=== PATIENT | male | born 1985 | race American Indian/Alaskan Native ===

== ENCOUNTER 2018-01-24 17:10 | Emergency (ER) | payer OTHER ==
[2018-01-24 17:24] VITALS: BP 191/112
--- NOTE | 2018-01-24 17:27 | EDM.PDOC ---
ED HPI GENERAL MEDICAL PROBLEM - General Chief Complaint: Cardiovascular Problem Stated Complaint: RACING HEART BEAT/TROUBLE WITH EYES Time Seen by Provider: 01/24/18 17:26 Source of Information: Reports: Patient History Limitations: Reports: No Limitations - History of Present Illness INITIAL COMMENTS - FREE TEXT/NARRATIVE: 32-year-old male of [place] descent presents to the ED due to feeling of palpitations racing heart and his heart working hard in his chest on at least 2 occasions today. He states he awoke abruptly from sleep this morning due to feeling of racing heart and trouble getting his breath. He states he jumped up out of bed as he was quite scared. He then became quite dizzy and lightheaded and had to sit down on the bed for a period of time until things improve. After while he was able to go back to sleep and he states about an hour later a similar event occurred. He states in the past he's had a bout of racing heart at age 24. Patient claims to have had hypertension for many years i.e. 7 or 8 but is not taking medication for this. He is morbidly obese current weight is 480 pounds. He has a history of gastroesophageal reflux for which he uses Jordyn- [place] tablets on a when necessary basis. He has awoken at night in the past with brash water in his mouth or throat. He drinks alcohol fairly regularly. States last drinking 3 days ago fairly heavily. He states he smokes cigarettes usually 5-10 per day. Onset Date: 01/24/18 Onset Time: 07:00 Duration: Hour(s): Location: Reports: Other (Awoken from sleep with sudden onset of severe dyspnea) Quality: Reports: Other Severity: Moderate (Shortness of breath.) Improves with: Reports: None Worsens with: Reports: None Context: Reports: Other (Awoke with from sleep with symptoms.). Denies: Activity, Exercise, Lifting, Sick Contact, Trauma Associated Symptoms: Reports: Chest Pain, Loss of Appetite, Malaise, Shortness of Breath. 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 1 tab PO DAILY 01/24/18 [History] amLODIPine Besylate [Norvasc] 10 mg PO DAILY #30 tablet 01/24/18 [Rx] Past Medical History Cardiovascular History: Reports: High Cholesterol, Hypertension Gastrointestinal History: Reports: GERD - Past Surgical History Musculoskeletal Surgical History: Reports: Other (See Below) Social & Family History - Family History Family Medical History: Noncontributory - Tobacco Use Smoking Status *Q: Current Every Day Smoker Years of Tobacco use: 10 Packs/Tins Daily: 0.1 Used Tobacco, but Quit: No Second Hand Smoke Exposure: No - Alcohol Use Alcohol Use History: Yes Days Per Week of Alcohol Use: 3 Number of Drinks Per Day: 2 Total Drinks Per Week: 6 - Recreational Drug Use Recreational Drug Use: Yes Drug Use in Last 12 Months: Yes Recreational Drug Type: Reports: Marijuana/Hashish - Living Situation & Occupation Living situation: Reports: Single, with Significant Other Occupation: Unemployed ED ROS GENERAL - Review of Systems Review Of Systems: See Below Constitutional: Reports: Weakness, Fatigue, Decreased Appetite, Other (Reports she's had 2 or 3 Gatorade since its Pedialyte today. Has not eaten yet today.). Denies: Fever, Chills, Malaise, Weight Loss HEENT: Reports: Vision Change ((Patient has fluctuating from time to time. Is not known to be diabetic but he rarely sees a physician.) Respiratory: Reports: Shortness of Breath, Cough. Denies: Wheezing, Pleuritic Chest Pain, Sputum, Hemoptysis Cardiovascular: Reports: Blood Pressure Problem, Dyspnea on Exertion (When he jumped up this morning he became quite lead lightheaded for a period of time), Lightheadedness, Palpitations ( likely). Denies: Chest Pain (Occasional cough) , Claudication (Has known hypertension for which she has declined to take medication for.), Edema, Orthopnea Endocrine: Reports: Fatigue ( see history of present illness) GI/Abdominal: Reports: Other (Gastroesophageal reflux disease.) : Reports: No Symptoms Musculoskeletal: Reports: Back Pain, Joint Pain (Knees at times) Skin: Reports: No Symptoms Neurological: Reports: No Symptoms Psychiatric: Reports: No Symptoms Hematologic/Lymphatic: Reports: No Symptoms Immunologic: Reports: No Symptoms ED EXAM, GENERAL - Physical Exam Exam: See Below Exam Limited By: No Limitations General Appearance: Alert, WD/WN, No Apparent Distress, Other (Vital signs reveal initial BP to be 191/112. Pulse ox is 98% on room air. BP will be continually monitored while in the ED.) Eye Exam: Bilateral Eye: Other (Patient has marked inflammation of the bladder peripheral margins of both lower eyes. It is particularly noted periorbitally on the right side. He states he left his contact him for several days in a row and did not have a solution to clean his contact lenses. He has minimal conjunctivitis.) Throat/Mouth: Normal Inspection, Normal Lips, Normal Oropharynx Head: Atraumatic, Normocephalic Neck: Normal Inspection, Supple, Non-Tender, Full Range of Motion. No: Lymphadenopathy (L), Lymphadenopathy (R), Thyromegaly Respiratory/Chest: No Respiratory Distress, Lungs Clear, Normal Breath Sounds, No Accessory Muscle Use, Chest Non-Tender Cardiovascular: Normal Peripheral Pulses, Regular Rate, Rhythm, No Edema, No Gallop, No Murmur GI/Abdominal: Normal Bowel Sounds, Soft, Non-Tender, Other (Patient is morbidly obese. He weighs close to 480 pounds. Abdominal girth inhibits ability to palpate any solid organs. He has a small umbilical hernia that is easily reducible.) Back Exam: Vertebral Tenderness Extremities: Normal Inspection, Normal Range of Motion, Non-Tender, No Pedal Edema Neurological: Alert, Oriented, CN II-XII Intact, Normal Cognition Psychiatric: Normal Affect, Normal Mood Skin Exam: Warm, Dry, Intact, Normal Color, No Rash EKG INTERPRETATION EKG Date: 01/24/18 Time: 17:50 Rhythm: NSR Rate (Beats/Min): 94 [place]: LAD-Left [place] Deviation (-1) P-Wave: Present QRS: Other (Incomplete right bundle branch block. Decreased voltage precordial leads.) ST-T: Other (T-wave flattening in aVF inverted in lead 3 which is normal.) QT: Normal EKG Interpretation Comments: Borderline ECG Course - Vital Signs Last Recorded V/S: Last Vital Signs Temp 37.4 C 01/24/18 17:20 Pulse 98 01/24/18 17:20 Resp 16 01/24/18 17:20 BP 191/112 H 01/24/18 17:20 Pulse Ox 98 01/24/18 17:20 - Orders/Labs/Meds Orders: Active Orders 24 hr Category Date Time Status EKG Documentation Completion [RC] STAT Care 01/24/18 17:37 Active Chest 1V Frontal [CR] Stat Exams 01/24/18 17:37 Taken DRUG SCREEN, URINE [URCHEM] Stat Lab 01/24/18 18:47 Ordered URINALYSIS W/MICROSCOPIC [UA W/MICROSCOPIC] [URIN] Stat Lab 01/24/18 18:47 Ordered Dextrose 5%-0.9% NaCl [Dextrose 5%-Normal Saline] 1,000 Med 01/24/18 17:45 Active ml IV ASDIRECTED Medication Orders Dextrose/Sodium Chloride (Dextrose 5%-Normal Saline) 1,000 mls @ 500 mls/hr IV ASDIRECTED ALO Last Admin: 01/24/18 17:45 Dose: 500 mls/hr Labs: Laboratory Tests 01/24/18 01/24/18 01/24/18 Range/Units 17:25 17:25 17:25 WBC 12.46 H (4.23-9.07) K/mm3 RBC 5.19 (4.63-6.08) M/mm3 Hgb 15.4 (13.7-17.5) gm/L Hct 44.9 (40.1-51.0) % MCV 86.5 (79.0-92.2) fl MCH 29.7 (25.7-32.2) pg MCHC 34.3 (32.2-35.5) g/dl RDW Std Deviation 43.9 (35.1-43.9) fL Plt Count 210 (163-337) K/mm3 MPV 10.2 (9.4-12.3) fl Neutrophils % (Manual) 77 H (40-60) % Band Neutrophils % 1 (0-10) % Lymphocytes % (Manual) 18 L (20-40) % Atypical Lymphs % 0 % Monocytes % (Manual) 2 (2-10) % Eosinophils % (Manual) 2 (0.8-7.0) % Basophils % (Manual) 0 L (0.2-1.2) Platelet Estimate Adequate Plt Morphology Comment Normal RBC Morph Comment Normal D-Dimer, Quantitative 0.34 (0.19-0.59) mg/L Sodium 137 (136-145) mEq/L Potassium 3.7 (3.5-5.1) mEq/L Chloride 100 (98-107) mEq/L Carbon Dioxide 24 (21-32) mEq/L Anion Gap 16.7 H (5-15) BUN 10 (7-18) mg/dL Creatinine 0.9 (0.7-1.3) mg/dL Est Cr Clr Drug Dosing 142.14 mL/min Estimated GFR (MDRD) > 60 (>60) mL/min BUN/Creatinine Ratio 11.1 L (14-18) Glucose 113 H (74-106) mg/dL Calcium 8.9 (8.5-10.1) mg/dL Magnesium 1.6 L (1.8-2.4) mg/dl Total Bilirubin 1.2 H (0.2-1.0) mg/dL AST 159 H (15-37) U/L ALT 105 H (16-63) U/L Alkaline Phosphatase 143 H (46-116) U/L Troponin I < 0.017 (0.00-0.056) ng/mL C-Reactive Protein 2.9 H* (<1.0) mg/dL NT-Pro-B Natriuret Pep (0-125) pg/mL Total Protein 8.3 H (6.4-8.2) g/dl Albumin 3.6 (3.4-5.0) g/dl Globulin 4.7 gm/dL Albumin/Globulin Ratio 0.8 L (1-2) TSH 3rd Generation 2.295 (0.358-3.74) uIU/mL Urine Color (Yellow) Urine Appearance (Clear) Urine pH (5.0-8.0) Ur Specific [place] (1.005-1.030) Urine Protein (Negative) Urine Glucose (UA) (Negative) Urine Ketones (Negative) Urine Occult Blood (Negative) Urine Nitrite (Negative) Urine Bilirubin (Negative) Urine Urobilinogen (0.2-1.0) Ur Leukocyte Esterase (Negative) Urine RBC (0-5) /hpf Urine WBC (0-5) /hpf Ur Epithelial Cells (0-5) /hpf Urine Bacteria (FEW) /hpf Urine Mucus (FEW) /hpf Urine Opiates Screen (NEGATIVE) Ur Buprenorphine Scrn (NEGATIVE) Ur Oxycodone Screen (NEGATIVE) Urine Methadone Screen (NEGATIVE) Ur Propoxyphene Screen (NEGATIVE) Ur Barbiturates Screen (NEGATIVE) Ur Tricyclics Screen (NEGATIVE) Ur Phencyclidine Scrn (NEGATIVE) Ur Amphetamine Screen (NEGATIVE) U Methamphetamines Scrn (NEGATIVE) U Benzodiazepines Scrn (NEGATIVE) U Cocaine Metab Screen (NEGATIVE) U Marijuana (THC) Screen (NEGATIVE) 01/24/18 01/24/18 01/24/18 Range/Units 17:25 18:47 18:47 WBC (4.23-9.07) K/mm3 RBC (4.63-6.08) M/mm3 Hgb (13.7-17.5) gm/L Hct (40.1-51.0) % MCV (79.0-92.2) fl MCH (25.7-32.2) pg MCHC (32.2-35.5) g/dl RDW Std Deviation (35.1-43.9) fL Plt Count (163-337) K/mm3 MPV (9.4-12.3) fl Neutrophils % (Manual) (40-60) % Band Neutrophils % (0-10) % Lymphocytes % (Manual) (20-40) % Atypical Lymphs % % Monocytes % (Manual) (2-10) % Eosinophils % (Manual) (0.8-7.0) % Basophils % (Manual) (0.2-1.2) Platelet Estimate Plt Morphology Comment RBC Morph Comment D-Dimer, Quantitative (0.19-0.59) mg/L Sodium (136-145) mEq/L Potassium (3.5-5.1) mEq/L Chloride (98-107) mEq/L Carbon Dioxide (21-32) mEq/L Anion Gap (5-15) BUN (7-18) mg/dL Creatinine (0.7-1.3) mg/dL Est Cr Clr Drug Dosing mL/min Estimated GFR (MDRD) (>60) mL/min BUN/Creatinine Ratio (14-18) Glucose (74-106) mg/dL Calcium (8.5-10.1) mg/dL Magnesium (1.8-2.4) mg/dl Total Bilirubin (0.2-1.0) mg/dL AST (15-37) U/L ALT (16-63) U/L Alkaline Phosphatase (46-116) U/L Troponin I (0.00-0.056) ng/mL C-Reactive Protein (<1.0) mg/dL NT-Pro-B Natriuret Pep 62 (0-125) pg/mL Total Protein (6.4-8.2) g/dl Albumin (3.4-5.0) g/dl Globulin gm/dL Albumin/Globulin Ratio (1-2) TSH 3rd Generation (0.358-3.74) uIU/mL Urine Color Dark yellow (Yellow) Urine Appearance Clear (Clear) Urine pH 6.0 (5.0-8.0) Ur Specific [place] 1.025 (1.005-1.030) Urine Protein 2+ H (Negative) Urine Glucose (UA) Negative (Negative) Urine Ketones Trace H (Negative) Urine Occult Blood Negative (Negative) Urine Nitrite Positive H (Negative) Urine Bilirubin 2+ H (Negative) Urine Urobilinogen 1.0 (0.2-1.0) Ur Leukocyte Esterase Negative (Negative) Urine RBC Not seen (0-5) /hpf Urine WBC 0-5 (0-5) /hpf Ur Epithelial Cells 5-10 H (0-5) /hpf Urine Bacteria Rare (FEW) /hpf Urine Mucus Not seen (FEW) /hpf Urine Opiates Screen Presumptive positive H (NEGATIVE) Ur Buprenorphine Scrn Negative (NEGATIVE) Ur Oxycodone Screen Negative (NEGATIVE) Urine Methadone Screen Negative (NEGATIVE) Ur Propoxyphene Screen Negative (NEGATIVE) Ur Barbiturates Screen Negative (NEGATIVE) Ur Tricyclics Screen Negative (NEGATIVE) Ur Phencyclidine Scrn Negative (NEGATIVE) Ur Amphetamine Screen Negative (NEGATIVE) U Methamphetamines Scrn Negative (NEGATIVE) U Benzodiazepines Scrn Negative (NEGATIVE) U Cocaine Metab Screen Negative (NEGATIVE) U Marijuana (THC) Screen Negative (NEGATIVE) Meds: Medications Generic Name Dose Route Start Last Admin Trade Name Freq PRN Reason Stop Dose Admin Dextrose/Sodium Chloride 1,000 mls @ 500 mls/hr 01/24/18 17:45 01/24/18 17:45 Dextrose 5%-Normal Saline IV 500 mls/hr ASDIRECTED ALO Administration - Radiology Interpretation Free Text/Narrative:: 32-year-old male who is morbidly obese and greater than 480 pounds presents the ED with 2 bouts of reported palpitations/tachycardia with his heart working hard in his chest that woke him from sleep this morning. He states initially woke up quite startled jumped out of bed felt dizzy lightheaded and was aware that his heart was working hard in his chest. He had a sit down for a period of time and things seemed to settle down he went back to sleep for about another hour and a similar type episode occurred. He states she's had no appetite today and is been drinking Gatorade and Pedialyte only. Has a history of gastroesophageal reflux disease using Jordyn-[place] tablets on intermittent basis to reduce the acid. He has occasionally awoke with brash water his mouth indicating significant reflux disorder. He is not sure if he has any sleep apnea or sleep disorder. He has the body habitus to have sleep apnea syndrome. At present time of presentation heart rate is 94 and sinus. BP is markedly elevated at 191/ 112 with a large cuff. He is known to be hypertensive but apparently has declined to take medication for this in the past. Plan routine labs to be done including TSH. One view chest x-ray to be obtained. IV will be D5 normal saline at 500 mils per hour. Urine drug screen to be obtained. - Re-Assessments/Exams Free Text/Narrative Re-Assessment/Exam: 01/24/18 18:35 chest x-ray portable is been done. B done twice to cat both costovertebral angles because he is so large. Again it shows poor inspirational view with compression of the lungs skews the appearance of diffuse vascular congestion pattern. Cardiac silhouette suggests possible mild tortuous thoracic aorta. He is rotated slightly to the right however. Neck silhouette is within normal limits. 01/24/18 18:37 White count is slightly elevated at 12.46. Hemoglobin is 15.4 with hematocrit of 44.9. Differential 77% neutrophils 1% band cells. Platelet count is 210,000. Sodium was 137 with a potassium of 3.7. Chloride 100 bicarbonate 24 and a gap is mildly elevated at 16.7. BUNs 10 with a creatinine of 0.9. GFR remains greater than 60. Blood sugar is 113. Magnesium is slightly low at 1.6. Total bilirubin mildly elevated at 1.2. AST is 159 ALT is 105 alk phosphatase 143. GERD alcohol use but it also may represent fatty liver disease. Troponin I is less than 0.017. C-reactive protein is mildly elevated at 2.9. TSH is 2.295. 01/24/18 19:15 Urinalysis returned positive for opiates which he is on for chronic low back pain. No other street drugs were identified or stimulants. If we can find no reason for him to have an elevated heart rate. I strongly suspect he has sleep apnea syndrome but he also probably has fairly free reflux of gastric content while sleeping. Weight loss would be only is only solution which at this point time would mean likely bariatric surgery. He clinically has an infective process with an elevated white count with left shift and elevated CRP. There is positive nitrates in his urine but no significant pus cells or leukocyte esterase. This may mean that he has a low-grade infection in his prostate gland. Plan I will place him on Levaquin 500 mg once daily for the next 10 days. Gentamicin eyedrops 2 drops each eye 4 times daily for 4 days to clear by infection. He will continue to use anti-inflammatory Motrin 600 mg every 6-8 hours for pain and fever relief. Departure - Departure Time of Disposition: 19:17 Disposition: Home, Self-Care 01 Condition: Fair Clinical Impression: Non-cardiac chest pain, Palpitations, Uncontrolled hypertension Conjunctivitis Qualifiers: Conjunctivitis type: blepharoconjunctivitis Laterality: bilateral Prostatitis Qualifiers: Prostatitis type: acute Qualified Code(s): N41.0 - Acute prostatitis Gastroesophageal reflux disease Qualifiers: Esophagitis presence: esophagitis presence not specified Qualified Code(s): K21.9 - Gastro-esophageal reflux disease without esophagitis Prescriptions: amLODIPine Besylate [Norvasc] 10 mg PO DAILY #30 tablet Gentamicin [Gentamicin Ophth Soln] 5 ml EYEBOTH QID #1 bottle Levofloxacin [Levaquin] 500 mg PO DAILY #10 tab Referrals: PCP,None [Primary Care Provider] - Forms: ED Department Discharge Additional Instructions: Evaluation the emergency room today in regards to awaking from sleep with heart pounding hard in her chest and perhaps beating irregularly. Appetite on 2 occasions this morning. I believe the cause of this is likely sleep apnea syndrome and therefore I would recommend that you have a sleep study carried out. Follow-up with your primary care physician to make these arrangements. Your sleep study can be done in our hospital. There is about a 3-4 week waiting list. The other possibility is that of reflux of acid contents from your stomach during the night while asleep if any acid touches the vocal cords it'll ridicule from sleep properly due to spasm of the upper airway this in turn releases adrenaline which would increase her heart rate and make it palate hard in your chest. All of the investigations done in the ED today did not reveal any signs of heart related illness. However lab work does reveal an elevated white blood cell count with a left shift suggesting an underlying bacterial infective process. Urinalysis is suggesting this may be coming from your prostate gland. Therefore treatment is to use Motrin 600 mg every 6-8 hours as needed for fever or body ache relief. Antibiotic is to be Levaquin 500 milligrams once daily for the next 10 days. In regards to the conjunctivitis or infection in your eyes were to use gentamicin eyedrops 2 drops to each eye 4 times daily for the next 3 days to clear up infection. No true cannot use contact lenses with these eyedrops as the drops will sustain the contact lenses and make them useless. Your blood pressure remains mildly elevated but much better than when you first came into the ED. Last BP was 161/96. Blood pressure remains too high and therefore I have written a prescription for blood pressure medication Norvasc 10 mg once daily. - My Orders Last 24 Hours: My Active Orders 01/24/18 17:37 EKG Documentation Completion [RC] STAT Chest 1V Frontal [CR] Stat 01/24/18 17:45 Dextrose 5%-0.9% NaCl [Dextrose 5%-Normal Saline] 1,000 ml IV ASDIRECTED 01/24/18 18:47 DRUG SCREEN, URINE [URCHEM] Stat URINALYSIS W/MICROSCOPIC [UA W/MICROSCOPIC] [URIN] Stat - Assessment/Plan Last 24 Hours: My Active Orders 01/24/18 17:37 EKG Documentation Completion [RC] STAT Chest 1V Frontal [CR] Stat 01/24/18 17:45 Dextrose 5%-0.9% NaCl [Dextrose 5%-Normal Saline] 1,000 ml IV ASDIRECTED 01/24/18 18:47 DRUG SCREEN, URINE [URCHEM] Stat URINALYSIS W/MICROSCOPIC [UA W/MICROSCOPIC] [URIN] Stat
[2018-01-24] MEDS ORDERED: Dextrose 5%-0.9% NaCl 1,000 ML IV SCH (17:45)
--- NOTE | 2018-01-25 07:58 | CR ---
Chest: Portable view of the chest was obtained. Comparison: No previous study. Heart size and mediastinum are normal. Lungs are clear. Bony structures are grossly intact. Impression: 1. Nothing acute is seen on portable chest x-ray. Diagnostic code #1
== END 2018-01-24 19:43 | disposition home or self-care (01) ==
LOC: JD.ED 17:10
DX: R07.89 Other chest pain (principal); R00.2 Palpitations; N41.0 Acute prostatitis; H10.503 Unspecified blepharoconjunctivitis, bilateral; E78.00 Pure hypercholesterolemia, unspecified; I10 Essential (primary) hypertension; F17.210 Nicotine dependence, cigarettes, uncomplicated; K21.9 Gastro-esophageal reflux disease without esophagitis; Z79.899 Other long term (current) drug therapy
CPT/HCPCS: 36415; 71045; 80053; 80306; 81001; 83735; 83880; 84443; 84484; 85025; 85379; 86140; 87086; 87088; 87181; 87184; 93005; 96360; 96361; 99285; J7042; 93010; 99284-25